=== PATIENT | male | born 1940 | race African-American/Black ===

== ENCOUNTER 2022-09-13 11:57 | Emergency (ER) | payer OTHER ==
[~2022-09-13] VITALS: Ht 177.8 cm; Wt 78.0 kg
--- NOTE | 2022-09-13 11:58 | NUR ---
BIBA BLS TO ER BED 4
[2022-09-13 11:59] VITALS: BP 120/78
[2022-09-13] MEDS ORDERED: KETOROLAC 60 MG/2 ML VIAL IM ONE (14:40)
[2022-09-13] MEDS ORDERED: IBUP-2213 PO (15:03)
[2022-09-13 15:10] VITALS: BP 141/66
--- NOTE | 2022-09-13 15:10 | NUR ---
Patient discharged with v/s stable. Written and verbal after care instructions given and explained. Patient alert, oriented and verbalized understanding of instructions. Ambulatory with to car. All questions addressed prior to discharge. ID band removed. Patient advised to follow up with PMD. Rx given. Patient educated on indication of medication including possible reaction and side effects. Opportunity to ask questions provided and answered.
== END 2022-09-13 15:10 | disposition home or self-care (01) ==
LOC: MED 11:57
DX: M25.512 Pain in left shoulder (principal); M25.531 Pain in right wrist; R42 Dizziness and giddiness; E11.9 Type 2 diabetes mellitus without complications; I10 Essential (primary) hypertension; W19.XXXA Unspecified fall, initial encounter; Y93.89 Activity, other specified; Y92.89 Other specified places as the place of occurrence of the external cause; Y99.8 Other external cause status
CPT/HCPCS: 29125; 73030; 73110; 96372; 99284; J1885; Q0092